=== PATIENT | female | born 1985 | race Caucasian/White ===

== ENCOUNTER → 2018-05-02 23:35 | Observation (INO) ==
[2018-05-02 22:27] LABS: Bilirubin,Urine Negative (Negative); Blood,Urine Negative (Negative); Clarity,Urine Clear (Clear); Color,Urine Yellow (Yellow); Glucose,Urine (UA) Normal (Normal); Ketones,Urine Negative (Negative); Leukocyte Esterase,Urine Negative (Negative); Nitrite,Urine Negative (Negative); Protein,Urine 30 mg/dL (Neg-Trace); Specific Gravity,Urine 1.018 (1.010-1.025); Urobilinogen,Urine Normal (Normal)
[2018-05-02 22:30] LABS: Bacteria,Urine Few per hpf (None-Few); Hyaline Casts,Urine None Seen per lpf (None-Few); RBC,Urine 0-3 per hpf (0-3); Squamous Epithelial Cell,Urine Many per lpf (None-Few); WBC,Urine 0-3 per hpf (0-3)
[2018-05-02 22:38] LABS: Amphetamine Screen,Urine Negative ng/mL (Cutoff=1000); Barbiturate Screen,Urine Negative ng/mL (Cutoff=200); Benzodiazepines Screen,Urine Negative ng/mL (Cutoff=200); Cannabinoid Screen,Urine Negative ng/mL (Cutoff = 50); Cocaine Screen,Urine Negative ng/mL (Cutoff= 300); Opiate Screen,Urine Negative ng/mL (Cutoff=300); Phencyclidine Screen,Urine Negative ng/mL (Cutoff=25)
--- NOTE | 2018-05-02 23:34 | Discharge Summary ---
Date of Encounter: 05/02/18 Time of Encounter: 23:34 - Discharge Diagnosis (1) 26 weeks gestation of Priority: Primary Status: Acute Comments: Follow up with Dr. Muñoz on Wednesday as scheduled labor precautions discussed Discharge to home (2) Carpal tunnel syndrome during Priority: Secondary Status: Acute (3) Abdominal cramping affecting Priority: Secondary Status: Acute Comments: UA- negative Discussed that this was likely a common discomfort of - Discharge Medications Home Medications: Colace 1 mg PO DAILY 05/02/18 [History] One Daily Tablet 1 mg PO DAILY 05/02/18 [History] Promethazine [Phenergan] 25 mg PO Q8HR PRN 05/02/18 [History] Allergies/Adverse Reactions: 3 Allergy/AdvReac Type Severity Reaction Status Date / Time sulfamethoxazole Allergy Hives Verified 05/02/18 22:26 [From Bactrim] trimethoprim [From Bactrim] Allergy Hives Verified 05/02/18 22:26 Data Procedures and tests throughout hospitalization: Laboratory Tests 05/02/18 05/02/18 22:17 22:17 Urine Color Yellow Urine Clarity Clear Urine pH 7.0 Ur Specific Cowley 1.018 Urine Protein 30 H Urine Glucose (UA) Normal Urine Ketones Negative Urine Blood Negative Urine Nitrite Negative Urine Bilirubin Negative Urine Urobilinogen Normal Ur Leukocyte Esterase Negative Urine Microscopic RBC 0-3 Urine Microscopic WBC 0-3 Ur Squamous Epith Cells Many H Urine Bacteria Few Hyaline Casts None Seen Ur Culture Indicated? NO Urine Opiates Screen Negative Ur Barbiturates Screen Negative Ur Phencyclidine Scrn Negative Ur Amphetamines Screen Negative U Benzodiazepines Scrn Negative Urine Cocaine Screen Negative U Marijuana (THC) Screen Negative Ur Drug Screen Interp See Below Labs on day of discharge: Labs from last 24 hours 05/02/18 05/02/18 22:17 22:17 Urine Color Yellow Urine Clarity Clear Urine pH 7.0 Ur Specific [place]ley 1.018 Urine Protein 30 H Urine Glucose (UA) Normal Urine Ketones Negative Urine Blood Negative Urine Nitrite Negative Urine Bilirubin Negative Urine Urobilinogen Normal Ur Leukocyte Esterase Negative Urine Microscopic RBC 0-3 Urine Microscopic WBC 0-3 Ur Squamous Epith Cells Many H Urine Bacteria Few Hyaline Casts None Seen Ur Culture Indicated? NO Urine Opiates Screen Negative Ur Barbiturates Screen Negative Ur Phencyclidine Scrn Negative Ur Amphetamines Screen Negative U Benzodiazepines Scrn Negative Urine Cocaine Screen Negative U Marijuana (THC) Screen Negative Ur Drug Screen Interp See Below Date of admission: 05/02/18 21:49 Discharging clinician: Bhargavi Terrell Anticipated date of discharge: 05/02/18 - Patient Status Disposition: Home, Self-Care Condition: Good Functional capacity at discharge: independent ambulation Overall status at discharge: patient is progressing back to baseline - Discharge Instructions Follow Up With: Armen Muñoz MD [Partnered Physician] - - Diet and Activity Activity: increase activity as tolerated Diet: regular diet Hospital Course [facility]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 She reports this has been happening x 2 days. All pertinent studies were negative and we discussed that these are common discomforts of . She agrees to discharge home and will see Dr. Muñoz on Wednesday this week. Time Attestation: Total time spent providing and/or coordinating discharge services: Time Spent: Less than 30 minutes Exam - Constitutional General appearance IM: A&O X 3 - Respiratory Respiratory exam: Present: CTAB - Cardiovascular Cardiovascular exam IM: Present: RRR, +S1, +S2 - GI/Abdominal GI/Abdominal exam IM: normal bowel sounds, pulsatile mass, no peritoneal signs - Rectal Rectal exam: deferred - Uterine Tone: Firm Uterus Position: Midline - Extremities Exam Extremities exam IM: Present: normal capillary refill, normal inspection, radial pulses palpable and symmetrical - Neurological Exam Neurological exam: alert, CN II-XII intact, normal gait, oriented X3, reflexes normal, no focal deficits, strengths equal and symetr throughout - VTE Reasons for not Prescribing Prophylaxis: Treatment not Indicated - Low risk for VTE
== END | disposition home or self-care (01) ==
LOC: 1NENULAB
PROVIDERS: ADMIT Student in an Organized Health Care Education/Training Program; ATTEND Student in an Organized Health Care Education/Training Program

== ENCOUNTER 2018-07-01 06:39 | Inpatient (IN) ==
[2018-07-01] MEDS ORDERED: Ringers Solution, Lactated 1,000 ML ONE (07:06)
[2018-07-01] MEDS: Ringers Solution, Lactated 1,000 ML IVC SCH ×2 (07:19→22:08)
[2018-07-01 07:50] LABS: Basophils # 0.1 K/mcL (0.0-0.2); Basophils % 0.6 %; Eosinophils # 0.2 K/mcL (0.0-0.6); Eosinophils % 1.1 %; Hematocrit 39.6 % (35.3-44.9); Hemoglobin 13.1 g/dL (11.5-15.4); Immature Granulocytes % 1.8 % (0-4); Lymphocytes # 2.6 K/mcL (0.6-4.6); Lymphocytes % 17.4 %; Mean Corpuscular HGB Conc 33.1 g/dL (31.6-35.5); Mean Corpuscular Hemoglobin 29.7 pg (28.0-33.3); Mean Corpuscular Volume 89.8 fL (83.0-100.0); Mean Platelet Volume 11.4 fL (9.4-12.4); Monocytes % 6.5 %; Neutrophils # 10.7 K/mcL (1.6-8.9); Platelet Count 443 K/mcL (140-400); Red Blood Count 4.41 M/mcL (3.82-4.97); Red Cell Distribution Width 13.9 % (11.5-14.5); Segmented Neutrophils % 72.6 %
[2018-07-01 07:52] LABS: Bilirubin,Urine Small (Negative); Blood,Urine Moderate (Negative); Glucose,Urine (UA) Normal (Normal); Ketones,Urine Negative (Negative); Leukocyte Esterase,Urine Negative (Negative); Nitrite,Urine Negative (Negative); Protein,Urine 30 mg/dL (Neg-Trace); Specific Gravity,Urine 1.017 (1.010-1.025); Urobilinogen,Urine Normal (Normal)
[2018-07-01 07:54] LABS: Bacteria,Urine Few per hpf (None-Few); Hyaline Casts,Urine None Seen per lpf (None-Few); Squamous Epithelial Cell,Urine Many per lpf (None-Few); WBC,Urine 0-3 per hpf (0-3)
[2018-07-01 07:55] LABS: Clarity,Urine Clear (Clear); Color,Urine Yellow (Yellow)
[2018-07-01 08:04] LABS: Alanine Aminotransferase 271 Units/L (7-52); Aspartate Amino Transferase 125 Units/L (13-39); BUN/Creatinine Ratio 13 (6-26); Blood Urea Nitrogen 7 mg/dL (6-20); Lactate Dehydrogenase 122 Units/L (140-271); Uric Acid 3.4 mg/dL (2.3-7.6); eGFR For Non-African Americans > 60 (> 60)
[2018-07-01 08:07] LABS: Calcium Oxalate Crystals,Urine Present
[2018-07-01] MEDS: Betamethasone Acet/SodPhos 6 MG/ML MDV IM SCH (08:12)
[2018-07-01 08:18] LABS: Amphetamine Screen,Urine Negative ng/mL (Cutoff=1000); Barbiturate Screen,Urine Negative ng/mL (Cutoff=200); Benzodiazepines Screen,Urine Negative ng/mL (Cutoff=200); Cannabinoid Screen,Urine Negative ng/mL (Cutoff = 50); Cocaine Screen,Urine Negative ng/mL (Cutoff= 300); Opiate Screen,Urine Negative ng/mL (Cutoff=300); Phencyclidine Screen,Urine Negative ng/mL (Cutoff=25)
[2018-07-01 08:23] LABS: Protein/Creatinine Ratio,Urine 0.32 mg/mg (0.00-0.20)
[2018-07-01] MEDS ORDERED: Penicillin G Potassium 5,000,000 UNIT in 0.9 % Sodium Chloride Mini Bag 100 ML IVPB ONE (10:19)
--- NOTE | 2018-07-01 10:49 | OB/GYN History & Physical ---
Date of Encounter: 07/01/18 Time of Encounter: 09:30 Assessment and Plan (1) Pre-eclampsia Current visit: Yes Status: Acute Most recent blood pressure 139/87 LFTs elevated- AST 125, ALT 271, lactate dehydrogenase 122 Platelet count 443 Protein Creatinine ratio 0.32, total protein 46 Plan for induction of labor GBS unknown, will give penicillin IV fluids Patient is 34&2 weeks gestation, received betamethasone x1dose at 0800 this morning. Second dose tomorrow morning at 0800. Brandon bulb Continuous monitoring Continue blood pressure monitoring. Will repeat PIH labs this evening Qualifiers: Trimester: third trimester Qualified Code(s): O14.93 - Unspecified pre- eclampsia, third trimester (2) 34 weeks gestation of Current visit: Yes Status: Acute 34&2weeks Plan for induction of labor as above (3) NST (non-stress test) reactive Current visit: Yes Status: Acute [place] q2-3 minutes 150/moderate variability/+ 15x15 accelerations, no decelerations (4) Gestational diabetes mellitus (GDM) affecting first Current visit: Yes Status: Acute Patient on Metformin 500mg BID x2 days Blood sugars stable at this time. History of Present Illness Chief complaint: pre term labor evaluation HPI: Ms. Malik is a 33 year old female who presents at 34 weeks and 2 days with chief complaint of right sided abdominal pain. Patient has been receiving care from Dr. Muñoz. Diagnosed with gestational diabetes and started on Metformin 500mg BID two days ago. Yesterday evening around 2230, the patient complained of sudden onset sharp right sided abdominal pain associated with period like cramping. Pain lasted approximately an hour. She reports good movement, no vaginal bleeding or loss of fluid. She went to [facility] overnight. She was told she had blood in her urine and could possibly having a placental abruption. She declined care, left AMA and presents this morning for further evaluation. Denies nausea, vomiting, diarrhea, fevers, chest pain, shortness of breath, dysuria, vision changes, headaches, weakness, or paresthesias. At present denies abdominal pain. Last anatomy US done on 06/28/2018 with 83%, BPP 8/8. complicated by tobacco use, gestational diabetes mellitus Anterior placenta Chlamydia not detected Gonorrhea not detected Rh negative 1 hour glucose 166 HBV surface Ag nonreactive HIV Ag nonreactive Treponema Pallidum Ab negative Rubella IgG positive Varicella IgG positive Past Med Surg Social Fam HX - Past Medical History Medical history: no medical history Psychiatric history: no psych history - Past Surgical History Surgical History: no surgical history Additional surgical history: ganglion cyst from right hand - Social History Smoking Status: Current every day smoker Smokeless Tobacco Status: No Alcohol use: none Drug use: none, marijuana - Family History Father Family Member Ethnicity: Non- Twin of Family Member: Yes, Fraternal Living Status: Age at : 52 Cause of : cardiac issues Hx Family Cardiac Disorders: Yes (hypertension, stroke) Hx Family Respiratory Disorders: No Hx Family Cancer: No Hx Family GI Disorders: No Hx Family Genitourinary Disorders: No Hx Family Endocrine Disorder: Yes (DM) Hx Family Musculoskeletal Disorders: No Hx Family Neuromuscular Disorders: No Hx Family Neurologic Disorders: No Hx Family HEENT Disorders: No Hx Family Autoimmune Disorders: No Hx Family Reproductive Disorders: No Hx Family Psychosocial Disorders: No Hx Family Medical Disorders: No Obstetrical History - Pregnancies : 1 Medications and Allergies One Daily Tablet 1 mg PO DAILY 05/02/18 [History] metFORMIN [Glucophage] 500 mg PO BIDWM 07/01/18 [History] Allergy/AdvReac Type Severity Reaction Status Date / Time sulfamethoxazole Allergy Hives Verified 05/02/18 22:26 [From Bactrim] trimethoprim [From Bactrim] Allergy Hives Verified 05/02/18 22:26 Review of System OB All systems PM: reviewed and no additional remarkable complaints except as stated - Constitutional Constitutional ROS IM: no chills, no headache(s), no weakness - Cardiovascular Cardiovascular: no chest pain, no dyspnea - Respiratory Respiratory: no dyspnea, no wheezing - Gastrointestinal Gastrointestinal: abdominal pain, no vomiting - Genitourinary Genitourinary: no abnormal vaginal bleeding, no vaginal discharge - Neurological Nerological: no headache(s), no lack of coordination, no loss of vision Exam - Constitutional Constitutional: well developed, well nourished, no acute distress - HEENT HEENT: EOMI, Normocephaly, Mucus Membranes Moist - Neck Neck exam: full ROM - Lungs Respiratory exam: CTAB - Cardiovascular Cardiovascular exam: RRR, +S1, +S2 - Abdomen Abdomen: Present: bowel sounds normal. Absent: guarding noted - Extremities Deep Tendon Reflex Grade: 2+ Normal (No clonus) - Cervix Dilation: 0 (per RN) Effacement: 0 (thick) Station: -4 - Comments Comments: [place] q2-3 minutes NST reactive. 150/moderate variability/+ 15x15 accelerations, no decelerations Results Result Diagrams: 07/01/18 06:50 07/01/18 06:50 Abnormal lab results WBC 14.8 K/mcL (4.3-11.1) H 07/01/18 06:50 Plt Count 443 K/mcL (140-400) H 07/01/18 06:50 Neutrophils # 10.7 K/mcL (1.6-8.9) H 07/01/18 06:50 Creatinine 0.56 mg/dL (0.60-1.20) L 07/01/18 06:50 POC Glucose 106 mg/dL (70-99) H 07/01/18 08:11 AST 125 Units/L (13-39) H 07/01/18 06:50 ALT 271 Units/L (7-52) H 07/01/18 06:50 Lactate Dehydrogenase 122 Units/L (140-271) L 07/01/18 06:50 Urine Protein 30 mg/dL (Neg-Trace) H 07/01/18 06:50 Urine Blood Moderate (Negative) H 07/01/18 06:50 Urine Bilirubin Small (Negative) H 07/01/18 06:50 Urine Microscopic RBC 3-5 per hpf (0-3) H 07/01/18 06:50 Ur Squamous Epith Cells Many per lpf (None-Few) H 07/01/18 06:50 Protein/Creatinin Ratio 0.32 mg/mg (0.00-0.20) H 07/01/18 06:50 Urine Total Protein 46 mg/dL (1-14) H 07/01/18 06:50 All other labs normal. - VTE Reasons for not Prescribing Prophylaxis: Treatment not Indicated - Low risk for VTE
--- NOTE | 2018-07-01 10:56 | Anesthesia Evaluation PreOp ---
Addendum entered and electronically signed by Michael San CRNA 07/03/18 14:53: Notified by L&D staff of need to perform for failure to progress. Confirmed patient to be NPO solids > 8hrs. GALINA is effectively managing labor pain at this time. Explained to patient that plan A will be to use GALINA whereas plan B will be GETA. Patient verbalizes understanding. No interval changes from what is documented below. VSS Original Note: Date of Encounter: 07/01/18 Time of Encounter: 10:55 - Past History Planned Operation: GALINA Cardiac History: HTN (PIH) Pulmonary History: Smoker (1 pack per day for 19 yrs) [employer]ER History: Denies Any Significant HX Other Medical History: Diabetes Type II (gestational DM) Anesthesia History: No Prior Anesthetic Complications, Past Anesthesia : Yes (34 weeks, g1) Alcohol Use: none Drug use: none, marijuana Medications and Allergies One Daily Tablet 1 mg PO DAILY 05/02/18 [History] metFORMIN [Glucophage] 500 mg PO BIDWM 07/01/18 [History] Allergy/AdvReac Type Severity Reaction Status Date / Time sulfamethoxazole Allergy Hives Verified 05/02/18 22:26 [From Bactrim] trimethoprim [From Bactrim] Allergy Hives Verified 05/02/18 22:26 - Meds/Allergy Pre-op Review Medications Reviewed: Yes Allergies Reviewed: Yes Beta Blockers on Current Med List: No Anesthesia Results - Labs 07/01/18 06:50 07/01/18 06:50 Anesthesia Exam O2 Sat Height 1.5 m Weight 96.162 kg 156/119 hr 108 Height: 4'11"` Weight: 96 - HEENT Pupil (Motor): Pupils equal Mallampati: II Teeth: Normal Oral Opening: Greater than 3 - FLIGHT [employer]ER LOC: Oriented [employer]ER Motor: Normal RUE, Normal LUE, Normal RLE, Normal LLE, Normal Face [employer]ER Sensory: Normal: RUE, LUE, RLE, LLE, Face - Cardiac Rhythm: Regular Murmur: None JVD: No Carotid Bruit: No - Pulmonary Breath Sounds: bilateral Clear Respiratory Effort: Symmetrical Anesthesia Assess/Plan ASA Score: 3 Level of consciousness: Cooperative Anesthetic Plan: Epidural Monitoring Plan: Standard Monitors
[2018-07-01] MEDS ORDERED: Metoclopramide 10 MG/2 ML VIAL IVP PRN (11:46)
[2018-07-01] MEDS ORDERED: Naloxone 0.4 MG/ML INJ IVP PRN (11:46)
[2018-07-01] MEDS ORDERED: Famotidine 20 MG/2 ML VIAL IVP PRN (11:46)
[2018-07-01] MEDS ORDERED: Ondansetron 4 MG/2 ML VIAL IVP PRN (11:46)
[2018-07-01] MEDS ORDERED: Ringers Solution, Lactated 1,000 ML IVC SCH (12:00)
[2018-07-01] MEDS: Nicotine 7 MG PATCH.TD24 TD SCH (12:50)
--- NOTE | 2018-07-01 13:19 | Event Note ---
Date of Encounter: 07/01/18 Time of Encounter: 12:[address] Grey regarding patient plan of care. Will begin GBS prophylaxis until culture is resulted, redraw [facility] labs at 1900 today. If contractions subside, PO Cytotec can be given. If patient progressed to 1 cm, will attempt to place cervical little balloon. Continue frequent BP monitoring and continuous EFM. Will provide collaborative care with Dr. Grey.
[2018-07-01] MEDS ORDERED: Famotidine 20 MG/2 ML VIAL IVP ONE (15:07)
[2018-07-01] MEDS: Penicillin G Potassium 2,500,000 UNIT in 0.9 % Sodium Chloride 100 ML IVPB SCH ×4 (15:43→23:36)
--- NOTE | 2018-07-01 18:45 | OB Labor Progress Note ---
Date of Encounter: 07/01/18 Time of Encounter: 18:42 Labor Progress Note - Subjective Subjective: Patient resting in bed without complaint at this time. SO at bedside - Vital Signs Vital Signs: 130's over 80's, afebrile - Cervix Cervix: FT/thick/high - Heart Tones Heart Tones: FHR 135 bpm, moderate variability, +15x15 accels, no decelerations. - [place]: Rare contractions - Interventions Interventions: SVE without change. Discussed po Cytotec and cervical little with patient when possible. - Plan Plan: Continue GBS prophylaxis PO Cytotec 50 mcg Cervical little placement when able Repeat [place] at 0800 07/02/18 Continue hourly blood pressures Anticipate
[2018-07-01] MEDS ORDERED: miSOPROStol 25 MCG TABLET PO ONE (19:00)
[2018-07-01 19:25] LABS: Basophils # 0.1 K/mcL (0.0-0.2); Basophils % 0.6 %; Eosinophils % 0.1 %; Hematocrit 37.7 % (35.3-44.9); Hemoglobin 12.5 g/dL (11.5-15.4); Immature Granulocytes % 2.6 % (0-4); Lymphocytes # 1.8 K/mcL (0.6-4.6); Mean Corpuscular HGB Conc 33.2 g/dL (31.6-35.5); Mean Corpuscular Hemoglobin 29.7 pg (28.0-33.3); Mean Corpuscular Volume 89.5 fL (83.0-100.0); Mean Platelet Volume 11.2 fL (9.4-12.4); Monocytes # 0.8 K/mcL (0.0-1.3); Monocytes % 4.9 %; Neutrophils # 12.9 K/mcL (1.6-8.9); Platelet Count 416 K/mcL (140-400); Red Blood Count 4.21 M/mcL (3.82-4.97); Segmented Neutrophils % 80.8 %
[2018-07-01 19:42] LABS: Protein/Creatinine Ratio,Urine 0.6 mg/mg (0.00-0.20)
[2018-07-01 19:43] LABS: Alanine Aminotransferase 266 Units/L (7-52); Aspartate Amino Transferase 120 Units/L (13-39); BUN/Creatinine Ratio 14 (6-26); Blood Urea Nitrogen 7 mg/dL (6-20); Lactate Dehydrogenase 118 Units/L (140-271); Uric Acid 3.4 mg/dL (2.3-7.6); eGFR For Non-African Americans > 60 (> 60)
--- NOTE | 2018-07-01 23:16 | OB Labor Progress Note ---
Date of Encounter: 07/01/18 Time of Encounter: 23:14 Labor Progress Note - Subjective Subjective: Patient resting at intervals. No complaints at this time. - Vital Signs Vital Signs: WNL, Afebrile - Cervix Cervix: FT/thick/high - Heart Tones Heart Tones: 125 bpm, moderate variability, no accels, no decels. - [place]: Rare contractions - Interventions Interventions: SVE without change - Plan Physician notified: Yes Physician notified details: Dr. Grey aware of 1900 PIH lab results and unchanged cervix. Plan: Place Cervidil for 12 hours Repeat PIH labs at 0700 07/02/18 Continue hourly BP monitoring Repeat steroid dose at 0815 07/02/18 Anticipate
[2018-07-02] MEDS: Penicillin G Potassium 2,500,000 UNIT in 0.9 % Sodium Chloride 100 ML IVPB SCH ×5 (03:30→20:13)
[2018-07-02 07:23] LABS: INR 0.9; Prothrombin Time 10.6 Seconds (9.4-12.1)
[2018-07-02 07:25] LABS: Activated Partial Thrombo Time 29.4 Seconds (26.0-36.0)
[2018-07-02 07:42] LABS: Alanine Aminotransferase 305 Units/L (7-52); Aspartate Amino Transferase 149 Units/L (13-39); BUN/Creatinine Ratio 13 (6-26); Blood Urea Nitrogen 7 mg/dL (6-20); Lactate Dehydrogenase 132 Units/L (140-271); Uric Acid 3.8 mg/dL (2.3-7.6); eGFR For Non-African Americans > 60 (> 60)
[2018-07-02] MEDS ORDERED: Betamethasone Acet/SodPhos 6 MG/ML MDV IM SCH (08:00)
[2018-07-02] MEDS: Betamethasone Acet/SodPhos 6 MG/ML MDV IM SCH (08:52)
[2018-07-02] MEDS ORDERED: Calcium Gluconate 1,000 MG/10 ML VIAL IVPB ONE (09:36)
[2018-07-02] MEDS: Magnesium Sulfate 20 gm/500mL 20 GM/500 ML IV.SOLN IVC SCH ×2 (09:48→20:11)
[2018-07-02] MEDS: Ringers Solution, Lactated 1,000 ML IVC SCH ×2 (09:49→20:13)
[2018-07-02] MEDS: Nicotine 21 MG PATCH.TD24 TD SCH (13:24)
[2018-07-02] MEDS: *HR* Nalbuphine 10 MG/ML AMPUL IVP PRN (16:09)
[2018-07-02] MEDS ORDERED: Oxytocin 20 units/ LR 1000 mL 20 UNIT/1,000 ML BAG IVC SCH (17:00)
[2018-07-02] MEDS: Nicotine 7 MG PATCH.TD24 TD SCH (20:13)
[2018-07-02] MEDS ORDERED: miSOPROStol 25 MCG TABLET PO ONE (22:22)
--- NOTE | 2018-07-02 22:23 | OB Labor Progress Note ---
Date of Encounter: 07/02/18 Time of Encounter: 22:21 Labor Progress Note - Subjective Subjective: Pt with some cramps, no other c/o. - Vital Signs Vital Signs: 130's/70's - Cervix Cervix: 4/90/-2 - Heart Tones Heart Tones: RNST - Interventions Interventions: AROM of copious amt of fluid that was clear. - Plan Plan: Expect .
[2018-07-03] MEDS: Penicillin G Potassium 2,500,000 UNIT in 0.9 % Sodium Chloride 100 ML IVPB SCH ×4 (00:22→12:28)
[2018-07-03] MEDS: *HR* Nalbuphine 10 MG/ML AMPUL IVP PRN (03:42)
[2018-07-03] MEDS ORDERED: *HR* Ropivacaine/PF 0.2% 20 ML VIAL EP ONE (03:48)
[2018-07-03] MEDS ORDERED: Naloxone 0.4 MG/ML INJ IVP PRN ×3 (03:48→18:05)
[2018-07-03] MEDS ORDERED: Ondansetron 4 MG/2 ML VIAL IVP PRN ×3 (03:48→18:05)
[2018-07-03] MEDS ORDERED: *HR* FentaNYL (PF) 100 MCG/2 ML VIAL EP ONE (03:48)
[2018-07-03] MEDS ORDERED: EPHEDrine 50 MG/ML VIAL IVP PRN (03:48)
[2018-07-03] MEDS ORDERED: Epidural Premix (fent/bupiv) 110 ML EP SCH (04:00)
[2018-07-03] MEDS: Magnesium Sulfate 20 gm/500mL 20 GM/500 ML IV.SOLN IVC SCH (06:21)
--- NOTE | 2018-07-03 08:39 | OB Labor Progress Note ---
Date of Encounter: 07/03/18 Time of Encounter: 08:37 Labor Progress Note - Subjective Subjective: Patient coping well with contractions. She has had 2 doses of Nubain thus far. - Vital Signs Vital Signs: Last BP 132/71, Afebrile - Cervix Cervix: 4/90/-2 - Heart Tones Heart Tones: FHR 130 bpm, moderate variability, no accels, no decels. - [place]: q 2-7 minutes, IUPC in place, MVU <200 - Interventions Interventions: SVE - Plan Physician notified: Yes Physician notified details: Dr. Grey updated on patient status and SVE. Plan: Continue Pitocin augmentation Continue Magnesium sulfate IUPC in place May have epidural when she requests Anticipate
[2018-07-03] MEDS ORDERED: *HR* FentaNYL (PF) 100 MCG/2 ML VIAL ONE ×2 (09:21→15:17)
[2018-07-03] MEDS ORDERED: Bupivacaine-MPF 0.25% 10 ML VIAL ONE (09:21)
[2018-07-03] MEDS ORDERED: Lidocaine -MPF 1% 5 ML AMPUL ONE (09:21)
--- NOTE | 2018-07-03 09:57 | Anesthesia Procedures ---
Addendum entered and electronically signed by Michael San CRNA 07/03/18 15:40: GALINA converted to anesthesia w/ 15mL of 2% lido w/ 1:200k epi resulting in T6 level. delivery date: 07/03/2018 Infant delivery time: 1535 Original Note: Date of Encounter: 07/03/18 Time of Encounter: 09:30 Procedures: Anesthesia - Epidural/Spinal Patient ID/Chart reviewed: Yes Patient examined: Yes OB Eval: Gestational age: 34 weeks 4 days OB Eval: : 1 OB Eval: Hx Para: 0 OB Eval: Dilated at (cm): 4 OB Eval: Contractions: Non-stressed pattern Site Prep: Aseptic Technique, Sterile prep and drape, Povidone-Iodine 1% Patient position: upright Local Anesthetic: Lidocaine 1% Amount of Local Anesthetic used: 3 Touhy Needle Gauge: 18 Touhy Needle Depth (cm): 5 Catheter Depth at Skin (cm): 10 Test Dose (1.5% Lido + Epi): Volume given (mls): 5 Test Dose Result: Negative Loading Dose: 0.25% Marcaine (mls): 5 Loading Dose: Fentanyl (mcg): 100 Loading Dose Administered: Thru Catheter Infusion Med: 0.125% Bupivacaine w/ 2 mcg/ml Fentanyl Infusion Rate (mls/hr): 12 (w/ demand bolus of 6mL q30min PRN) Catheter Secured in Place: Tegaderm, Tape Interspace Used: L3-L4 Loss of Resistance (ANTONINO): Yes Blood: No CSF: No Paresthesia: No Procedure: successful on 1st attempt; patient tolerated procedure well; VSS Vitals + FHT's: please see [facility]'s electronic records for VS entry
--- NOTE | 2018-07-03 13:03 | Event Note ---
<Ginger Urrutia - Last Filed: 07/03/18 13:05> Date of Encounter: 07/03/18 Time of Encounter: 13:01 Patient having subtle late decelerations. Patient position changed. Will give 500L fluid bolus. She states she is feeling comfortable after the epidural. Has no acute complaints. Blood pressures stable. Patient's cervix is 4cm/90%/-2. Will continue to monitor. <Lukasz Grey - Last Filed: 07/03/18 13:29> Date of Encounter: 07/03/18 I examined this patient and my medical decision-making was reviewed with the Resident Physician. I agree with the documented findings, disposition and treatment plan as described except to the extent set forth below. Lukasz Grey MD, FACOG
[2018-07-03] MEDS: Nicotine 21 MG PATCH.TD24 TD SCH (13:34)
--- NOTE | 2018-07-03 14:05 | OB Labor Progress Note ---
Date of Encounter: 07/03/18 Time of Encounter: 14:03 Labor Progress Note - Subjective Subjective: Patient comfortable with epidural. - Cervix Cervix: 4/90/-2 without change from earlier exam. - Heart Tones Heart Tones: FHR 150 bpm, moderate variability, no accels, occassional late decelerations. - [place]: IUPC in place, q2-3 minutes. MVU >200 - Interventions Interventions: SVE without change. Patient had questions regarding the baby having "dry lungs" since her AROM was last night. Discussed this with patient. Dr. Grey also in room for this discussion. - Plan Physician notified: Yes Physician notified details: Dr. Grey in room for discussion and SVE. Aware of FHR tracing Plan: Gave patient the option to continue laboring or proceed with . She is to discuss with her and let the staff know her decision. Continue Mag Sulfate, Pitocin, and PCN until patient decides how she would like to proceed.
--- NOTE | 2018-07-03 14:17 | Event Note ---
<Ginger Urrutia - Last Filed: 07/03/18 14:15> Date of Encounter: 07/03/18 Time of Encounter: 14:15 All options were discussed with the patient. Due to no cervical change and cervical edema noted on recent cervical exam, patient would like to have a section. Risks and benefits of options discussed. Consent will be signed. All questions answered. <Lukasz Grey - Last Filed: 07/03/18 17:54> Date of Encounter: 07/03/18 I examined this patient and my medical decision-making was reviewed with the Resident Physician. I agree with the documented findings, disposition and treatment plan as described except to the extent set forth below. Lukasz Grey MD, FACOG
[2018-07-03] MEDS: Ringers Solution, Lactated 1,000 ML IVC SCH (14:21)
[2018-07-03] MEDS ORDERED: Lidocaine/EPI 1:200k 2% PF 20 ML VIAL ONE (14:39)
[2018-07-03] MEDS ORDERED: *HR* Oxytocin 10 UNIT/ML VIAL IM ONE ×2 (14:42→15:55)
[2018-07-03] MEDS ORDERED: *HR* Promethazine 25 MG/ML VIAL IVP PRN (15:41)
[2018-07-03] MEDS ORDERED: *HR* Morphine Sulfate/PF 10 MG/10 ML AMPUL ONE (15:43)
[2018-07-03] MEDS ORDERED: *HR* Phenylephrine 10 MG/ML VIAL ONE (15:55)
[2018-07-03] MEDS ORDERED: Ringers Solution, Lactated 1,000 ML ONE (15:55)
--- NOTE | 2018-07-03 16:20 | OB/GYN Procedure Note ---
Section - Date of procedure: 07/03/18 Preop diagnosis: other (severe pre-eclampsia, relative CPD) Post-op diagnosis: same Procedure: primary low transverse Surgeon: Lukasz Grey Quantitated Blood Loss: 500 (mL) Was there an lab assistant present: Yes Associate Of Science In Nursing: Ginger Urrutia (PGY-1) Anesthesiologist: Herrera Lundberg Anesthesia Type: Epidural section complications: none Disposition: PACU Specimens: Placenta, Cord blood - (s) Infant A Delivery Date: 07/03/18 Infant Delivery Time: 15:35 Presentation: vertex Position: NASIR Gender: Female Viability: Viable Pounds: 5 Ounces: 13 Gram Weight: 2625 kg at 1 minute: 9 at 5 minutes: 9 Shoulder Dystocia: not encountered Specimens collected: cord blood Placenta: complete extraction - Narrative Narrative: Patient was taken to the operating room. She was placed in supine position. Vagina and abdomen were prepped and draped in usual manner. After appropriate timeout, the abdomen was entered through standard Maylard incision. The Kaye retractor was placed. The peritoneum overlying the lower uterine segment was incised in U-shaped fashion. Uterine cavity was entered sharply. Membranes were ruptured yielding clear fluid. With fundal pressure the head was delivered. suctioned upon delivery of the head. The remainder infant was delivered. The umbilical cord double clamped and cut and the was handed to nursery staff for further evaluation. Placenta was removed. Uterus was closed with 0 Monocryl in a single layer. After assurance of hemostasis, retractor was removed. The abdomen was closed standard fashion using 0 PDS on the fascia and 3-0 Monocryl in the skin. Sterile dressing was applied. Patient did well and was taken to recovery in satisfactory condition. Counts were correct.
--- NOTE | 2018-07-03 16:20 | Anesthesia Evaluation Post Op ---
Date of Encounter: 07/03/18 Time of Encounter: 16:19 - Vital Signs Vital Signs: 124/89, HR 111, 97%, 98.1F, RR16 - Lungs Lungs: Clear Ascult./Percussion - Airway Airway: Non-obstructed - Cardiovascular Regular Rate - Mental Status Mental Status: Alert & Oriented, Answers Appropriately - Pain Pain Scale: 0 Pain Scale used: Numeric (1 - 10) - Nausea Vomiting Nausea Vomiting: Not Present - Hydration Hydration: NPO, Brandon catheter - Discharge PostOp Status: Transfer Patient to floor
[2018-07-03] MEDS ORDERED: Oxytocin 20 units/ LR 1000 mL 20 UNIT/1,000 ML BAG IVC SCH (18:05)
[2018-07-03] MEDS ORDERED: Sennosides 8.6 MG TABLET PO PRN (18:05)
[2018-07-03] MEDS ORDERED: Magnesium Sulfate 20 gm/500mL 20 GM/500 ML IV.SOLN IVC SCH (18:05)
[2018-07-03] MEDS ORDERED: Rho Immune Globulin 1,500 UNIT SYRINGE IM ONE (18:05)
[2018-07-03] MEDS ORDERED: Acetaminophen 325 MG TABLET PO PRN (18:05)
[2018-07-03] MEDS ORDERED: Metoclopramide 10 MG/2 ML VIAL IVP PRN (18:05)
[2018-07-03] MEDS: *HR* Metformin 500 MG TABLET PO SCH (20:13)
[2018-07-03] MEDS: Ibuprofen 600 MG TABLET PO PRN (22:18)
[2018-07-03] MEDS: *HR* OxyCODONE/APAP 5/325 TABLET PO PRN (22:18)
[2018-07-04] MEDS: *HR* HYDROmorphone (PF) 1 MG/ML SYRINGE IVP PRN ×2 (01:15→08:58)
[2018-07-04 03:23] LABS: Basophils # 0.1 K/mcL (0.0-0.2); Basophils % 0.4 %; Eosinophils % 0.2 %; Hematocrit 31.2 % (35.3-44.9); Hemoglobin 10.4 g/dL (11.5-15.4); Immature Granulocytes % 3.3 % (0-4); Immature Platelets 6.1 % (1.1-6.1); Lymphocytes # 2.8 K/mcL (0.6-4.6); Lymphocytes % 14.4 %; Mean Corpuscular HGB Conc 33.3 g/dL (31.6-35.5); Mean Corpuscular Hemoglobin 30.2 pg (28.0-33.3); Mean Corpuscular Volume 90.7 fL (83.0-100.0); Mean Platelet Volume 11.4 fL (9.4-12.4); Monocytes # 1.2 K/mcL (0.0-1.3); Monocytes % 6.3 %; Neutrophils # 14.6 K/mcL (1.6-8.9); Nucleated Red Blood Cells 0.2 /100 WBC (0); Platelet Count 316 K/mcL (140-400); Red Blood Count 3.44 M/mcL (3.82-4.97); Red Cell Distribution Width 13.9 % (11.5-14.5); Segmented Neutrophils % 75.4 %
[2018-07-04] MEDS: *HR* OxyCODONE/APAP 5/325 TABLET PO PRN ×3 (06:19→18:40)
[2018-07-04 07:19] LABS: Alanine Aminotransferase 221 Units/L (7-52); Aspartate Amino Transferase 97 Units/L (13-39); BUN/Creatinine Ratio 8 (6-26); Blood Urea Nitrogen 5 mg/dL (6-20); Lactate Dehydrogenase 242 Units/L (140-271); Uric Acid 4.7 mg/dL (2.3-7.6); eGFR For Non-African Americans > 60 (> 60)
[2018-07-04] MEDS: *HR* Metformin 500 MG TABLET PO SCH ×2 (08:02→18:54)
[2018-07-04] MEDS: Prenatal Vit/FA 1 EACH TABLET PO SCH (08:02)
[2018-07-04] MEDS: Azithromycin 250 MG TABLET PO SCH (08:02)
[2018-07-04] MEDS ORDERED: PRENATAL ONE DAILY PO SCH (09:00)
[2018-07-04] MEDS: metroNIDAZOLE 500 MG TABLET PO SCH ×2 (09:32→19:59)
--- NOTE | 2018-07-04 11:21 | OB/GYN Progress Note ---
Date of Encounter: 07/04/18 Time of Encounter: 11:18 - Assessment and Plan (1) Status post primary low transverse section Current Visit: Yes Status: Acute Continue routine care Anticipate discharge home tomorrow (2) Breast feeding status of mother Current Visit: Yes Status: Acute consult today (3) Pre-eclampsia Current Visit: Yes Status: Acute Discontinue magnesium at 1532 this afternoon Qualifiers: Trimester: third trimester Qualified Code(s): O14.93 - Unspecified pre- eclampsia, third trimester Subjective - Subjective Principal diagnosis: PLTCS Interval history: Feeling well. Out of bed without dizziness. Some abdominal discomfort-using binder. Cramping minimal, using ibuprofen and Percocet. every 2- 3 hours. Some nipple soreness. Voiding without difficulty. Passing flatus, no BM yet. Tolerating clear liquid diet. Patient reports: appetite normal, pain well controlled, ambulating normally, no voiding normally [place]: doing well, in NICU, nursing well, bottle feeding Objective - Vital Signs Latest vital signs: Vital Signs Temp Pulse Pulse Resp BP Pulse Ox 07/04/18 10:30 93 18 140/94 07/04/18 09:30 97 18 130/90 07/04/18 08:30 95 18 141/84 07/04/18 07:30 87 18 149/92 07/04/18 06:00 97.7 F 135 16 135/92 97 07/04/18 05:00 97.7 F 82 14 137/87 95 07/04/18 04:10 97.6 F 82 82 15 131/86 97 07/04/18 03:00 97.6 F 84 15 133/77 94 07/04/18 01:50 98.0 F 87 15 144/86 94 07/04/18 00:50 97.9 F 90 15 130/92 96 07/03/18 23:50 97.6 F 88 88 15 141/89 96 07/03/18 22:50 90 16 141/84 07/03/18 22:03 98.6 F 96 14 145/90 94 07/03/18 21:50 98.7 F 96 14 145/90 94 07/03/18 20:50 98.0 F 96 16 151/92 97 07/03/18 19:50 98.0 F 95 95 16 152/91 07/03/18 19:20 97.5 F L 95 95 14 138/90 07/03/18 18:59 98.7 F 100 16 154/92 96 Intake and Output 07/03/18 07/04/18 07/04/18 23:59 07:59 15:59 Intake Total 700 / 700 970 / 970 500 / 500 Output Total 2850 / 2850 2600 / 2600 450 / 450 Balance -2150 / -2150 -1630 / -1630 50 / 50 Intake: Oral 200 / 200 120 / 120 500 / 500 Other 500 / 500 850 / 850 Output: Urine 1800 / 1800 1450 / 1450 450 / 450 Catheter 1050 / 1050 1150 / 1150 Other: Weight 95.1 kg 94.2 kg Patient Weight 07/04/18 23:59 Weight 94.2 kg - Exam Lungs: bilateral: normal Chest: Normal S1, Normal S2 Extremities: Present: normal, tenderness Abdomen: Present: normal appearance, soft, gravid Incision: Present: normal, dry, dressed Uterus: Present: normal, firm Fundal Height: 0 (midline) - Labs Labs: Laboratory Results - last 24 hr 07/03/18 07/03/18 07/03/18 07:37 09:27 11:30 WBC RBC Hgb Hct MCV MCH MCHC RDW Plt Count MPV Immature Gran % Seg Neutrophils % Lymphocytes % Monocytes % Eosinophils % Basophils % Neutrophils # Lymphocytes # Monocytes # Eosinophils # Basophils # Nucleated RBCs/100 WBC Immature Plt Fraction BUN Creatinine Est GFR ( Amer) Est GFR (Non-Af Amer) BUN/Creatinine Ratio POC Glucose 122 H 131 H 129 H Uric Acid AST ALT Lactate Dehydrogenase Screen Baby's Blood Type Mother's Blood Type Rhogam Indicated Rhogam Req for Mother 07/03/18 07/03/18 07/04/18 13:39 16:30 02:38 WBC 19.3 H RBC 3.44 L Hgb 10.4 L D Hct 31.2 L MCV 90.7 MCH 30.2 MCHC 33.3 RDW 13.9 Plt Count 316 MPV 11.4 Immature Gran % 3.3 Seg Neutrophils % 75.4 Lymphocytes % 14.4 Monocytes % 6.3 Eosinophils % 0.2 Basophils % 0.4 Neutrophils # 14.6 H Lymphocytes # 2.8 Monocytes # 1.2 Eosinophils # 0.0 Basophils # 0.1 Nucleated RBCs/100 WBC 0.2 H Immature Plt Fraction 6.1 BUN Creatinine Est GFR ( Amer) Est GFR (Non-Af Amer) BUN/Creatinine Ratio POC Glucose 115 H Uric Acid AST ALT Lactate Dehydrogenase Screen NEGATIVE Baby's Blood Type B RH POSITIVE Mother's Blood Type B RH NEGATIVE Rhogam Indicated YES Rhogam Req for Mother 1 07/04/18 06:48 WBC RBC Hgb Hct MCV MCH MCHC RDW Plt Count MPV Immature Gran % Seg Neutrophils % Lymphocytes % Monocytes % Eosinophils % Basophils % Neutrophils # Lymphocytes # Monocytes # Eosinophils # Basophils # Nucleated RBCs/100 WBC Immature Plt Fraction BUN 5 L Creatinine 0.63 Est GFR ( Amer) > 60 Est GFR (Non-Af Amer) > 60 BUN/Creatinine Ratio 8 POC Glucose Uric Acid 4.7 AST 97 H ALT 221 H Lactate Dehydrogenase 242 Screen Baby's Blood Type Mother's Blood Type Rhogam Indicated Rhogam Req for Mother
[2018-07-04] MEDS: Ibuprofen 600 MG TABLET PO PRN (19:52)
[2018-07-04] MEDS: Nicotine 21 MG PATCH.TD24 TD SCH (22:16)
[2018-07-05] MEDS: *HR* OxyCODONE/APAP 5/325 TABLET PO PRN ×2 (00:27→11:26)
[2018-07-05] MEDS: Simethicone 80 MG TAB.CHEW PO PRN ×2 (00:27→08:49)
[2018-07-05] MEDS: Ibuprofen 600 MG TABLET PO PRN ×2 (02:00→08:42)
[2018-07-05] MEDS: Azithromycin 250 MG TABLET PO SCH (07:41)
[2018-07-05 07:58] VITALS: BP 141/89
[2018-07-05] MEDS: metroNIDAZOLE 500 MG TABLET PO SCH (08:41)
[2018-07-05] MEDS: Prenatal Vit/FA 1 EACH TABLET PO SCH (08:41)
[2018-07-05] MEDS: Nicotine 21 MG PATCH.TD24 TD SCH (08:42)
[2018-07-05] MEDS: *HR* Metformin 500 MG TABLET PO SCH (09:03)
--- NOTE | 2018-07-05 11:08 | Discharge Summary ---
Date of Encounter: 07/05/18 Time of Encounter: 11:09 - Discharge Diagnosis (1) Status post primary low transverse section Priority: Secondary Status: Acute Comments: Status post primary low transverse day 2 Meeting day 2 milestones Pain well controlled Ambulating without dizziness Mood is appropriate Appetite is normal Voiding and passing flatus Lochia is light Discussed safe spacing and is planning vasectomy Will do azithromycin for 3 more days for PPROM, Well to discharge to home Follow up with OB in 2 weeks Follow up for nurse visit to check blood pressure in 1 week (2) 34 weeks gestation of Priority: Primary Status: Acute Comments: Now Delivered at 34w2d Complicated by GDM on metformin, PPROM and preeclampsia (3) Pre-eclampsia Priority: Secondary Status: Acute Comments: Resolved LFTs trending downwards VSS Will send home with BP cuff and discussed logging pressures Follow up with OB in 1 week for nurse visit to discuss BP Qualifiers: Trimester: third trimester Qualified Code(s): O14.93 - Unspecified pre- eclampsia, third trimester (4) Gestational diabetes mellitus (GDM) affecting first Priority: Secondary Status: Acute Comments: GDM controlled with metformin Will need GTT in 6 weeks - Discharge Medications Prescriptions: RX: OxyCODONE/APAP 5/325 [Percocet 5/325 MG] 1 each PO Q4HR PRN 7 Days #28 tablet PRN Reason: Moderate pain 4-6 RX: Ibuprofen [Motrin] 600 mg PO Q6HR PRN #30 tablet PRN Reason: Cramping RX: Azithromycin [Zithromax] 250 mg PO Q24H #3 tablet Blood Pressure Test Kit [Blood Pressure Kit] 1 each MC DAILY 7 Days #1 kit Breast Pump [BREAST PUMP] 1 each .ROUTE AD #1 each RX: Docusate [Colace] 100 mg PO BID #30 capsule RX: Ferrous Sulfate 325 mg PO DAILY@0800 #90 tablet Home Medications: One Daily Tablet 1 mg PO DAILY 05/02/18 [History] RX: DiphenhydraMINE [Benadryl] 50 mg PO Q8H 07/01/18 [History] RX: Docusate [Colace] 100 mg PO BID 07/01/18 [History] RX: Ferrous Sulfate [Iron] 325 mg PO BID 07/01/18 [History] RX: Promethazine [Phenergan] 25 mg PO Q8HR 12/07/18 [History] Blood Pressure Test Kit [Blood Pressure Kit] 1 each MC DAILY 7 Days #1 kit 07/05/18 [Rx] Breast Pump [BREAST PUMP] 1 each .ROUTE AD #1 each 07/05/18 [Rx] RX: Acetaminophen [Tylenol] 325 mg PO Q6HR PRN tablet 07/05/18 [Rx] RX: Azithromycin [Zithromax] 250 mg PO Q24H #3 tablet 07/05/18 [Rx] RX: Docusate [Colace] 100 mg PO BID #30 capsule 07/05/18 [Rx] RX: Ferrous Sulfate 325 mg PO DAILY@0800 #90 tablet 07/05/18 [Rx] RX: Ibuprofen [Motrin] 600 mg PO Q6HR PRN #30 tablet 07/05/18 [Rx] RX: OxyCODONE/APAP 5/325 [Percocet 5/325 MG] 1 each PO Q4HR PRN 7 Days #28 tablet 07/05/18 [Rx] Allergies/Adverse Reactions: Allergy/AdvReac Type Severity Reaction Status Date / Time sulfamethoxazole Allergy Hives Verified 05/02/18 22:26 [From Bactrim] trimethoprim [From Bactrim] Allergy Hives Verified 05/02/18 22:26 Data Procedures and tests throughout hospitalization: Laboratory Tests 07/01/18 07/01/18 07/01/18 06:50 06:50 06:50 WBC 14.8 H RBC 4.41 Hgb 13.1 Hct 39.6 MCV 89.8 MCH 29.7 MCHC 33.1 RDW 13.9 Plt Count 443 H MPV 11.4 Immature Gran % 1.8 Seg Neutrophils % 72.6 Lymphocytes % 17.4 Monocytes % 6.5 Eosinophils % 1.1 Basophils % 0.6 Neutrophils # 10.7 H Lymphocytes # 2.6 Monocytes # 1.0 Eosinophils # 0.2 Basophils # 0.1 Nucleated RBCs/100 WBC Immature Plt Fraction PT INR APTT BUN Creatinine Est GFR ( Amer) Est GFR (Non-Af Amer) BUN/Creatinine Ratio POC Glucose Uric Acid AST ALT Lactate Dehydrogenase Urine Color Yellow Urine Clarity Clear Urine pH 7.0 Ur Specific [place] 1.017 Urine Protein 30 H Urine Glucose (UA) Normal Urine Ketones Negative Urine Blood Moderate H Urine Nitrite Negative Urine Bilirubin Small H Urine Urobilinogen Normal Ur Leukocyte Esterase Negative Urine Microscopic RBC 3-5 H Urine Microscopic WBC 0-3 Ur Squamous Epith Cells Many H Calcium Oxalate Crystal Present Urine Bacteria Few Hyaline Casts None Seen Ur Culture Indicated? NO Urine Creatinine Protein/Creatinin Ratio Urine Total Protein Urine Opiates Screen Negative Ur Barbiturates Screen Negative Ur Phencyclidine Scrn Negative Ur Amphetamines Screen Negative U Benzodiazepines Scrn Negative Urine Cocaine Screen Negative U Marijuana (THC) Screen Negative Ur Drug Screen Interp See Below Screen Baby's Blood Type Mother's Blood Type Rhogam Indicated Rhogam Req for Mother 07/01/18 07/01/18 07/01/18 06:50 06:50 08:11 WBC RBC Hgb Hct MCV MCH MCHC RDW Plt Count MPV Immature Gran % Seg Neutrophils % Lymphocytes % Monocytes % Eosinophils % Basophils % Neutrophils # Lymphocytes # Monocytes # Eosinophils # Basophils # Nucleated RBCs/100 WBC Immature Plt Fraction PT INR APTT BUN 7 Creatinine 0.56 L Est GFR ( Amer) > 60 Est GFR (Non-Af Amer) > 60 BUN/Creatinine Ratio 13 POC Glucose 106 H Uric Acid 3.4 AST 125 H ALT 271 H Lactate Dehydrogenase 122 L Urine Color Urine Clarity Urine pH Ur Specific [place] Urine Protein Urine Glucose (UA) Urine Ketones Urine Blood Urine Nitrite Urine Bilirubin Urine Urobilinogen Ur Leukocyte Esterase Urine Microscopic RBC Urine Microscopic WBC Ur Squamous Epith Cells Calcium Oxalate Crystal Urine Bacteria Hyaline Casts Ur Culture Indicated? Urine Creatinine 143 Protein/Creatinin Ratio 0.32 H Urine Total Protein 46 H Urine Opiates Screen Ur Barbiturates Screen Ur Phencyclidine Scrn Ur Amphetamines Screen U Benzodiazepines Scrn Urine Cocaine Screen U Marijuana (THC) Screen Ur Drug Screen Interp Screen Baby's Blood Type Mother's Blood Type Rhogam Indicated Rhogam Req for Mother 07/01/18 07/01/18 07/01/18 12:02 19:05 19:05 WBC 15.9 H RBC 4.21 Hgb 12.5 Hct 37.7 MCV 89.5 MCH 29.7 MCHC 33.2 RDW 14.0 Plt Count 416 H MPV 11.2 Immature Gran % 2.6 Seg Neutrophils % 80.8 Lymphocytes % 11.0 Monocytes % 4.9 Eosinophils % 0.1 Basophils % 0.6 Neutrophils # 12.9 H Lymphocytes # 1.8 Monocytes # 0.8 Eosinophils # 0.0 Basophils # 0.1 Nucleated RBCs/100 WBC Immature Plt Fraction PT INR APTT BUN 7 Creatinine 0.51 L Est GFR ( Amer) > 60 Est GFR (Non-Af Amer) > 60 BUN/Creatinine Ratio 14 POC Glucose Uric Acid 3.4 AST 120 H ALT 266 H Lactate Dehydrogenase 118 L Urine Color Urine Clarity Urine pH Ur Specific [place] Urine Protein Urine Glucose (UA) Urine Ketones Urine Blood Urine Nitrite Urine Bilirubin Urine Urobilinogen Ur Leukocyte Esterase Urine Microscopic RBC Urine Microscopic WBC Ur Squamous Epith Cells Calcium Oxalate Crystal Urine Bacteria Hyaline Casts Ur Culture Indicated? Urine Creatinine 35 Protein/Creatinin Ratio 0.60 H Urine Total Protein 21 H Urine Opiates Screen Ur Barbiturates Screen Ur Phencyclidine Scrn Ur Amphetamines Screen U Benzodiazepines Scrn Urine Cocaine Screen U Marijuana (THC) Screen Ur Drug Screen Interp Screen Baby's Blood Type Mother's Blood Type Rhogam Indicated Rhogam Req for Mother 07/02/18 07/02/18 07/03/18 07:02 07:02 07:37 WBC RBC Hgb Hct MCV MCH MCHC RDW Plt Count MPV Immature Gran % Seg Neutrophils % Lymphocytes % Monocytes % Eosinophils % Basophils % Neutrophils # Lymphocytes # Monocytes # Eosinophils # Basophils # Nucleated RBCs/100 WBC Immature Plt Fraction PT 10.6 INR 0.9 APTT 29.4 BUN 7 Creatinine 0.55 L Est GFR ( Amer) > 60 Est GFR (Non-Af Amer) > 60 BUN/Creatinine Ratio 13 POC Glucose 122 H Uric Acid 3.8 AST 149 H ALT 305 H Lactate Dehydrogenase 132 L Urine Color Urine Clarity Urine pH Ur Specific [place] Urine Protein Urine Glucose (UA) Urine Ketones Urine Blood Urine Nitrite Urine Bilirubin Urine Urobilinogen Ur Leukocyte Esterase Urine Microscopic RBC Urine Microscopic WBC Ur Squamous Epith Cells Calcium Oxalate Crystal Urine Bacteria Hyaline Casts Ur Culture Indicated? Urine Creatinine Protein/Creatinin Ratio Urine Total Protein Urine Opiates Screen Ur Barbiturates Screen Ur Phencyclidine Scrn Ur Amphetamines Screen U Benzodiazepines Scrn Urine Cocaine Screen U Marijuana (THC) Screen Ur Drug Screen Interp Screen Baby's Blood Type Mother's Blood Type Rhogam Indicated Rhogam Req for Mother 07/03/18 07/03/18 07/03/18 09:27 11:30 13:39 WBC RBC Hgb Hct MCV MCH MCHC RDW Plt Count MPV Immature Gran % Seg Neutrophils % Lymphocytes % Monocytes % Eosinophils % Basophils % Neutrophils # Lymphocytes # Monocytes # Eosinophils # Basophils # Nucleated RBCs/100 WBC Immature Plt Fraction PT INR APTT BUN Creatinine Est GFR ( Amer) Est GFR (Non-Af Amer) BUN/Creatinine Ratio POC Glucose 131 H 129 H 115 H Uric Acid AST ALT Lactate Dehydrogenase Urine Color Urine Clarity Urine pH Ur Specific [place] Urine Protein Urine Glucose (UA) Urine Ketones Urine Blood Urine Nitrite Urine Bilirubin Urine Urobilinogen Ur Leukocyte Esterase Urine Microscopic RBC Urine Microscopic WBC Ur Squamous Epith Cells Calcium Oxalate Crystal Urine Bacteria Hyaline Casts Ur Culture Indicated? Urine Creatinine Protein/Creatinin Ratio Urine Total Protein Urine Opiates Screen Ur Barbiturates Screen Ur Phencyclidine Scrn Ur Amphetamines Screen U Benzodiazepines Scrn Urine Cocaine Screen U Marijuana (THC) Screen Ur Drug Screen Interp Screen Baby's Blood Type Mother's Blood Type Rhogam Indicated Rhogam Req for Mother 07/03/18 07/04/18 07/04/18 16:30 02:38 06:48 WBC 19.3 H RBC 3.44 L Hgb 10.4 L D Hct 31.2 L MCV 90.7 MCH 30.2 MCHC 33.3 RDW 13.9 Plt Count 316 MPV 11.4 Immature Gran % 3.3 Seg Neutrophils % 75.4 Lymphocytes % 14.4 Monocytes % 6.3 Eosinophils % 0.2 Basophils % 0.4 Neutrophils # 14.6 H Lymphocytes # 2.8 Monocytes # 1.2 Eosinophils # 0.0 Basophils # 0.1 Nucleated RBCs/100 WBC 0.2 H Immature Plt Fraction 6.1 PT INR APTT BUN 5 L Creatinine 0.63 Est GFR ( Amer) > 60 Est GFR (Non-Af Amer) > 60 BUN/Creatinine Ratio 8 POC Glucose Uric Acid 4.7 AST 97 H ALT 221 H Lactate Dehydrogenase 242 Urine Color Urine Clarity Urine pH Ur Specific [place] Urine Protein Urine Glucose (UA) Urine Ketones Urine Blood Urine Nitrite Urine Bilirubin Urine Urobilinogen Ur Leukocyte Esterase Urine Microscopic RBC Urine Microscopic WBC Ur Squamous Epith Cells Calcium Oxalate Crystal Urine Bacteria Hyaline Casts Ur Culture Indicated? Urine Creatinine Protein/Creatinin Ratio Urine Total Protein Urine Opiates Screen Ur Barbiturates Screen Ur Phencyclidine Scrn Ur Amphetamines Screen U Benzodiazepines Scrn Urine Cocaine Screen U Marijuana (THC) Screen Ur Drug Screen Interp Screen NEGATIVE Baby's Blood Type B RH POSITIVE Mother's Blood Type B RH NEGATIVE Rhogam Indicated YES Rhogam Req for Mother 1 Date of admission: 07/01/18 06:39 Primary care physician: Jaciel Reese CNP Discharging clinician: Maida Perez Anticipated date of discharge: 07/05/18 - Patient Status Disposition: Home, Self-Care Condition: Good Functional capacity at discharge: independent ambulation Overall status at discharge: patient is progressing back to baseline - Discharge Instructions Follow Up With: Jaciel Reese CNP [Primary Care Provider] - Lukasz Grey MD [Partnered Physician] - - Diet and Activity Activity: resume usual activities as tolerated Diet: advance to your usual diet Hospital Course Reason for admission: pre-eclampsia Delivery: Episiotomy: none Laceration: none Other procedures: none complications: none Discharge diagnosis: delivery [place] baby: female Hospital course: - Date of procedure: 07/03/18 Preop diagnosis: other (severe pre-eclampsia, relative CPD) Post-op diagnosis: same Procedure: primary low transverse Surgeon: Lukasz Grey Quantitated Blood Loss: 500 (mL) Was there an court assistant present: Yes Real Estate Assistant: Ginger Urrutia ([id number]) Anesthesiologist: Herrera Lundberg Anesthesia Type: Epidural section complications: none Disposition: PACU Specimens: Placenta, Cord blood - Infant (s) Infant A Infant Delivery Date: 07/03/18 Infant Delivery Time: 15:35 Presentation: vertex Position: NASIR Gender: Female Viability: Viable Pounds: 5 Ounces: 13 Gram Weight: 2625 kg at 1 minute: 9 at 5 minutes: 9 Shoulder Dystocia: not encountered Specimens collected: cord blood Placenta: complete extraction Time Attestation: Total time spent providing and/or coordinating discharge services: - VTE Reasons for not Prescribing Prophylaxis: Treatment not Indicated - Low risk for VTE Documentation of Mechanical Device: Intermittent pneumatic compression device - Attending Attestation I examined this patient and my medical decision-making was reviewed with the Resident Physician. I agree with the documented findings, disposition and treatment plan as described. Sugey Campuzano CNM Exam - Constitutional Vitals: Temp Pulse Resp BP Pulse Ox 98.1 F 89 16 141/89 98 07/05/18 07:57 07/05/18 07:57 07/05/18 07:57 07/05/18 07:57 07/05/18 07:57 General appearance IM: A&O X 3, pleasant, no acute distress, answers questions appropriately - Respiratory Respiratory exam: Present: CTAB. Absent: rales, respiratory distress, rhonchi, wheezes - Cardiovascular Cardiovascular exam IM: Present: RRR, +S1, +S2. Absent: irregular rhythm - GI/Abdominal GI/Abdominal exam IM: normal bowel sounds, soft Incision: normal, dry, intact - Rectal Rectal exam: deferred - Uterine Tone: Firm Uterus Position: 1 Finger Below Umbilicus - Extremities Exam Extremities exam IM: Present: normal capillary refill, pedal edema, radial pulses palpable and symmetrical. Absent: calf tenderness - Neurological Exam Neurological exam: CN II-XII intact, oriented X3, no focal deficits - Psychiatric Additional comments: Mood is appropriate
== END 2018-07-05 12:30 | disposition home or self-care (01) | DRG 540 ==
LOC: 1NENULAB → OBSVTOIN 06:39 → 1NENUOBS 07-03 18:52
PROVIDERS: ADMIT Advanced Practice Midwife; ATTEND Advanced Practice Midwife